=== PATIENT | female | born 1990 | race Caucasian/White ===

== ENCOUNTER → 2018-01-04 | Outpatient (CLI) | payer OTHER ==
[~2018-01-04] MED LIST: ACE3 PO; DOCU-416 PO; IBU800 PO; OXYC-865 PO; PER PO
--- NOTE | 2018-01-04 14:11 | RADIOLOGY IMAGING REPORT ---
FACILITY: [facility] PATIENT NAME: Vilma Macedo : 1990 MR: [id number] V: [id number] EXAM DATE: ORDERING PHYSICIAN: DANIEL PATTERSON TECHNOLOGIST: Location[place] [facility] [place] Patient: Vilma Macedo : 1990 Visit/Account:[id number] Date of Sevice: 01/04/2018 Exam type: KNEE 3 VIEW RIGHT History: Chronic right knee pain times years, hurts more with exercise Comparison: None. Findings: There is no evidence of acute fracture, dislocation, significant arthritic change, lytic or blastic l esions involving the right knee. No radiopaque soft tissue foreign bodies identified. IMPRESSION: 1. No osteoarticular abnormality of the right knee is seen. If patient's pain continues MR may be h elpful Report Dictated By: Vale Peralta MD at 01/04/2018 2:05 PM Report E-Signed By: Vale Peralta MD at 01/04/2018 2:06 PM WSN:TED
== END ==
LOC: RAD 13:10
PROVIDERS: ATTEND Chiropractor
DX: M25.561 Pain in right knee (principal)